=== PATIENT | male | born 1930 | race Caucasian/White ===

== ENCOUNTER 2017-06-07 10:22 | Inpatient (IN) | payer SELFPAY ==
[2017-06-07 11:55] LABS: Bilirubin Negative (Negative); Blood, Urine Large (Negative); Clarity CLOUDY (Clear); Glucose, Urine (Dipstick) Negative (Negative); Leukocyte Negative (Negative); Nitrite Negative (Negative); Protein, Urine (Dipstick) 100 mg/dL (Neg-Trace); Specific Gravity, Urine 1.022 (1.002-1.036); Urobilinogen 0.2 mg/dL (0.2-1.0)
--- NOTE | 2017-06-07 11:55 | RAD ---
CHEST 1 VIEW: Date: 06/07/17 HISTORY: Altered mental status. COMPARISON: None. FINDINGS: Heart size is enlarged. There appear to be multifocal left-sided air space opacities. Mild blunting o f left lateral costophrenic sulcus. No pneumothorax. No acute osseous abnormality. Lungs are hyperinf lated. Dense calcifications of the aorta. IMPRESSION: 1. Cardiomegaly. 2. Multifocal left-sided air space opacities and small effusion concerning for pneumonia. 3. Obstructive pulmonary disease. POS: [facility]
[2017-06-07 11:58] LABS: Bacteria/HPF None Seen HPF (None Seen); Hyaline Casts/LPF 4-6 HYALINE CAST LPF (0-3 Hyaline); Pathc Cast-AUWi Flag 1.21 (0-2.49); RBC/HPF 0-3 HPF (0-3); Squamous Epithelial 0-3 HPF (0-3); WBC/HPF 0-3 HPF (0-3)
[2017-06-07 11:59] LABS: Hemoglobin 12.9 g/dL (14.0-18.0); Mean Corpuscular Volume 96.9 fl (80.0-94.0); Mean Platelet Volume 8.8 fL (7.4-10.4); Platelet Count 194 thou/uL (130-400); RBC Distribution Width 12.7 % (11.5-14.5); Red Blood Cell (RBC) Count 4.03 mill/uL (4.70-6.10); White Blood Cell (WBC) Count 11.8 thou/uL (4.8-10.8)
[2017-06-07 11:59] LABS: Yeast-AUWi Flag 154.7 (0-25.0)
--- NOTE | 2017-06-07 12:01 | RAD ---
PELVIS 1 VIEW: Date: 06/07/17 HISTORY: Fall. COMPARISON: None. FINDINGS: The pubic symphysis is only mildly narrowed. SI joints are intact. No sacral fracture is appreciated. The hip joints are in normal alignment. No femoral neck fracture. IMPRESSION: No acute fracture. POS: [facility]
--- NOTE | 2017-06-07 12:05 | CT ---
CT BRAIN: Date: 06/07/17 HISTORY: Fall. FINDINGS: Noncontrast enhanced CT images of brain obtained. There is age-appropriate cortical atrophy. No evidence of intracranial masses, hemorrhages, strokes, or contusions seen. Ventricles are of normal size. There does appear to be a small amount of gas ante rior to the right maxillary sinus, possibly from facial injury. There does appear to also be some daly e air in the right and left nutrition aides teacher spaces adjacent to the pterygoid muscles. There are also small areas of free air seen in the right and left cavernous sinuses. Dedicated facial CT may be of use. IMPRESSION: Abnormal areas of free air seen in the right and left nutrition aides teacher spaces, as well as the right and lef t cavernous sinuses. POS: [facility]
[2017-06-07 12:10] LABS: Crystals/HPF 1+ AMORPH URATES HPF (Negative); Other Casts/LPF 0-3 COARSE GRAN LPF (0-3 Hyaline); Yeast-All Forms None Seen HPF (None Seen)
[2017-06-07 12:16] LABS: Band 16 % (5-11); MDiff Complete? YES; Monocytes 13 % (0-10); Myelocyte 1 % (0-0); Neutrophil 70 % (42-75); PLT Morphology Comment Appears Adequate; RBC Morphology Normal
[2017-06-07 12:19] LABS: ALT (SGPT) 102 U/L (8-55); AST (SGOT) 287 U/L (5-34); Albumin 3.8 g/dL (3.4-4.8); Alkaline Phosphatase 53 U/L (40-150); Anion Gap 15 mmol/L (10-20); BUN (Urea Nitrogen) 47 mg/dL (8.4-25.7); Bilirubin, Total 1.5 mg/dL (0.2-1.2); Calc. Creatinine Clearance 0 mL/min (70-130); Calcium 9.1 mg/dL (7.8-10.44); Carbon Dioxide 21 mmol/L (23-31); Chloride 112 mmol/L (98-107); Estimated GFR-MDRD 54; Globulin 2.7 g/dL (2.4-3.5); Glucose 88 mg/dL (83-110); Potassium 3.8 mmol/L (3.5-5.1); Protein, Total 6.5 g/dL (5.8-8.1); Sodium 144 mmol/L (136-145)
[2017-06-07 12:30] LABS: Troponin I 6.107 ng/mL (< 0.028)
[2017-06-07 12:33] LABS: CK (CPK) 7407 U/L (30-200)
[2017-06-07] MEDS ORDERED: Azithromycin 500 MG in Sodium Chloride 0.9% 250 ML 250 ML IVPB SCH (13:15)
--- NOTE | 2017-06-07 13:46 | CT ---
CT FACIAL BONES: Date: 06/07/17 HISTORY: Patient with fall. FINDINGS: Axial images are obtained with coronal and sagittal reconstructions. The frontal, ethmoid, maxillary, and sphenoid sinuses are well aerated. As mentioned on the CT of the brain, bilateral cavernous sinu s areas of air are present. There is a small amount of free air anterior to the right maxillary sinus . Small pockets of gas are also seen adjacent to the right pterygoid plate involving the medial and l ateral pterygoid muscles. A tiny amount of gas is also seen in the transverse foramen of C1 on the ri ght, as well as right and left transverse foramen of the C2 vertebra and additional gas is seen along the course of the right vertebral arteries in the transverse foramen bilaterally. There are also sma ll areas of air seen in the left carotid canal seen on image 61 adjacent to the left carotid bulb. No definite evidence of facial fractures seen. There does appear to be a tiny bit of free air also se en anterior to the right frontal sinus. IMPRESSION: 1. Multiple small areas of free air in the soft tissues of the neck and face. There does appear to b e also some free air within the cavernous sinuses bilaterally. 2. No definite evidence of facial fractures seen. POS: [facility]
[2017-06-07] MEDS ORDERED: Bisacodyl 5 MG TAB PO PRN (15:05)
[2017-06-07] MEDS ORDERED: Acetaminophen 325 MG TAB PO PRN (15:05)
[2017-06-07] MEDS ORDERED: Ondansetron ODT 4 MG TAB PO PRN (15:05)
[2017-06-07] MEDS: Sodium Chloride 0.9% 1,000 ML IV SCH (15:29)
[2017-06-07] MEDS ORDERED: Adacel (T-DAP) 0.5 ML VIAL ONE (15:40)
--- NOTE | 2017-06-07 17:24 | HP ---
PRESENTING COMPLAINT: Fall. HISTORY OF PRESENT ILLNESS: An 86-year-old male with no known medical history who presents to the emergency room today after he was found face down at home. He was reported to have fallen around 8:30 on Thursday night, but was not found until Thursday around 9:30 by his daughter when she came to visit. She found him face down and he was rigid. He called EMS who came and assessed him, but the family decided against a hospital visit as he seemed to have no acute problems then. The daughter says, she thinks he attempted to help his to a potty chair (his also is unable to ambulate properly) and then he fell. They also noted foul and dark urine. The patient has been noted to have been falling more frequently for the past several months. He has had about 3-4 falls in the past 2 months. They also noticed that he has had a change in his mental status around this time too. He was taken to the physician and he was seen at [facility], but all the investigations were negative. It was felt to be likely secondary to advancing age, causing dementia. He currently lives at home with his and their son lives next door. At the emergency room, he was found to have a low grade fever. Labs showed slightly elevated troponin and CPK. Chest x-ray showed left pneumonia. He was started on antibiotics and was then admitted for pneumonia, rhabdomyolysis and elevated troponin. PAST MEDICAL HISTORY: Early dementia. FAMILY HISTORY: Reviewed and noncontributory. SOCIAL HISTORY: He does not smoke or drink alcohol. HOME MEDICATIONS: None. ALLERGIES: None. PAST SURGICAL HISTORY: None. REVIEW OF SYSTEMS: Constitutional: Positive for fevers and weakness. HEENT: Eyes: Denies changes in vision Resp: Denies congestion, cough, shortness of breath. Cardiovascular: Denies chest pain, palpitations, PND, orthopnea, irregular heartbeats. Extremities: Edema. Gastrointestinal: Denies nausea, vomiting, constipation, diarrhea. Genitourinary: Negative. Hematology: Negative. Neurology: Negative. Skin: Denies rashes or skin lesions. MSK: denies joint pains, back pain Immunology: Negative PHYSICAL EXAMINATION: Vital signs stable. General: In mild distress. HEENT: Swelling (mild) with bruises on face and right orbital area. Moist membranes. Eyes: EOMI, PERRLA Resp: Clear to auscultation b/l. No wheezes or rales. Cardiovascular: RRR. s1 s2 only. No m/r/g Extremities: No edema. Moving extremities spontaneously. Gastrointestinal: + BS. No organomegaly. Soft, not distended. Neurology: Oriented to person. Lethargic Skin: Warm and dry. Well perfused. LABORATORY DATA: As above. IMAGING: Chest x-ray which revealed cardiomegaly and multifocal left-sided airspace opacities and small effusion concerning for pneumonia, obstructive pulmonary disease. CT head without contrast showed abnormal areas of free air seen in the right and left medical billing service spaces as well as the right and left cavernous cyanosis. Facial bone CT multiple areas of free air in the soft tissues of the neck and face. There does also appear to be some free air within the cavernous sinuses bilaterally. No definite evidence of facial fractures seen. EKG no signs of acute ischemia. ASSESSMENT AND PLAN: 1. Rhabdomyolysis: secondary to prolonged immobility. He has been started on IV hydration. We will trend CPK troponin. Monitor vital signs closely. 2. Left Lobar Pneumonia. He has been started on antibiotics. We will give nebulizer treatments p.r.n. as well. 3. Elevated troponin likely secondary to rhabdomyolysis. We will monitor. Patient is chest pain free. 4. Dementia. Recently diagnosed. Likely responsible for the patient's frequent falls. We will ensure delirium precautions. Obtain B12/folate and TSH. 5. Frequent Falls: As above. PT/OT evaluation. manager social responsibility consult for placement options. CODE STATUS: FULL CODE. MTDD
[2017-06-07] MEDS ORDERED: Acetaminophen 325 MG TAB ONE (17:27)
[2017-06-07 18:57] LABS: Critical Call Chem Troponin I RESULT DECREASING; Troponin I 5.916 ng/mL (< 0.028)
[2017-06-07] MEDS ORDERED: Prevnar 13-Val Conj/PF 0.5 ML SYRINGE IM ONE (21:00)
[2017-06-07] MEDS: Heparin 5,000 UNITS/ML VIAL SC SCH (22:15)
[2017-06-07] MEDS: Docusate 100 MG CAP PO SCH (22:46)
[2017-06-08 01:09] LABS: Critical Call Chem Troponin I RESULT DECREASING; Troponin I 4.507 ng/mL (< 0.028)
[2017-06-08] MEDS: FLU VACC TS2017-18 (>65YR) 0.5 ML SYRINGE IM ONE (03:00)
[2017-06-08 05:06] LABS: Anion Gap 14 mmol/L (10-20); BUN (Urea Nitrogen) 47 mg/dL (8.4-25.7); Calc. Creatinine Clearance 32 mL/min (70-130); Calcium 9.2 mg/dL (7.8-10.44); Carbon Dioxide 22 mmol/L (23-31); Chloride 113 mmol/L (98-107); Estimated GFR-MDRD 54; Glucose 92 mg/dL (83-110); Potassium 3.6 mmol/L (3.5-5.1); Sodium 145 mmol/L (136-145)
[2017-06-08 05:19] LABS: CK (CPK) 4581 U/L (30-200)
[2017-06-08 05:45] LABS: Band 26 % (5-11); Hemoglobin 11.8 g/dL (14.0-18.0); Lymphocytes 7 % (21-51); MDiff Complete? YES; Macrocytosis SLIGHT = 6-15 cells (100X) (0-5/hpf); Mean Corpuscular HGB CONC 32.8 g/dL (32.0-36.0); Mean Corpuscular Hemoglobin 31.8 pg (27.0-31.0); Mean Corpuscular Volume 96.9 fl (80.0-94.0); Mean Platelet Volume 9.2 fL (7.4-10.4); Monocytes 6 % (0-10); Neutrophil 61 % (42-75); PLT Morphology Comment Appears Adequate; Platelet Count 187 thou/uL (130-400); RBC Distribution Width 12.7 % (11.5-14.5); Red Blood Cell (RBC) Count 3.71 mill/uL (4.70-6.10); White Blood Cell (WBC) Count 13.5 thou/uL (4.8-10.8)
[2017-06-08] MEDS: Sodium Chloride 0.9% 1,000 ML IV SCH ×2 (07:55→22:52)
[2017-06-08] MEDS: Heparin 5,000 UNITS/ML VIAL SC SCH ×3 (11:15→22:55)
[2017-06-08] MEDS: Docusate 100 MG CAP PO SCH (11:17)
--- NOTE | 2017-06-08 11:19 | PDOC.PN ---
- Subjective Encounter Start Date: 06/08/17 Encounter Start Time: 11:17 Subjective: More awake today and speaking in complete sentences -: No acute events overnight. - Objective Resuscitation Status: Resuscitation Status DNR:Do Not Resuscitate MAR Reviewed: Yes Vital Signs & Weight: Vital Signs (12 hours) Temp Pulse Resp BP Pulse Ox 06/08/17 03:40 98.9 F 97 20 133/61 97 06/08/17 03:20 98.1 F 103 H 18 115/55 L 96 06/07/17 23:30 99.4 F 102 H 18 120/58 L 96 Weight Weight 119 lb 4.8 oz I&O: 06/07/17 06/08/17 06/09/17 06:59 06:59 06:59 Intake Total 728 Balance 728 Result Diagrams: 06/08/17 04:12 06/08/17 04:13 Phys Exam - Physical Examination Constitutional: NAD HEENT: PERRLA, moist MMs, sclera anicteric Neck: supple, full ROM Respiratory: no wheezing, no rales, no rhonchi, clear to auscultation bilateral Cardiovascular: RRR, no significant murmur, no rub Gastrointestinal: soft, non-tender, no distention, positive bowel sounds Musculoskeletal: no edema, pulses present Neurological: non-focal, moves all 4 limbs Psychiatric: normal affect Deviation from normal: Awake but lethargic. Oriented x 2 Skin: no rash, normal turgor Dx/Plan (1) Rhabdomyolysis Code(s): M62.82 - RHABDOMYOLYSIS Status: Acute Qualifiers: Encounter type: subsequent encounter Plan: Continue mx Comment: 2/2 prolonged immobility following a fall. Continue IVF Monitor K, CPK (2) PNA (pneumonia) Code(s): J18.9 - PNEUMONIA, UNSPECIFIED ORGANISM Status: Acute Qualifiers: Pneumonia type: due to unspecified organism Laterality: left Lung location: lower lobe of lung Qualified Code(s): J18.1 - Lobar pneumonia, unspecified organism Plan: Continue mx Comment: As seen on CXR. On Azithromycin and ceftriaxone (3) Dementia Code(s): F03.90 - UNSPECIFIED DEMENTIA WITHOUT BEHAVIORAL DISTURBANCE Status: Chronic Qualifiers: Dementia type: unspecified type Dementia behavioral disturbance: without behavioral disturbance Qualified Code(s): F03.90 - Unspecified dementia without behavioral disturbance Comment: Continue mx Delirium precautions (4) Fall Code(s): W19.XXXA - UNSPECIFIED FALL, INITIAL ENCOUNTER Status: Acute Qualifiers: Encounter type: subsequent encounter Qualified Code(s): W19.XXXD - Unspecified fall, subsequent encounter Comment: likely 2/2 advancing dementia. W/u for medical etiology negative PT/OT/Speech pathology on board. CT head negative. CT face free air in soft tissues of neck and face as well as free air in Cavernous sinus b/l Discussion held with patient and family, and would not like to proceed with further investigations and management, especially since he is asymptomatic from it (5) Elevated troponin Code(s): R74.8 - ABNORMAL LEVELS OF OTHER SERUM ENZYMES Status: Acute Comment: 2/2 prolonged immobitily. Trending down chest pain free. - Plan cont current plan of care, plan discussed w/ family, continue antibiotics, PT/OT , social sciences chair, speech therapy patient lives with while currently hospitalized here- telephonic case manager consult * .
[2017-06-08] MEDS ORDERED: Docusate Sodium 100 MG/10 ML UDCUP PO SCH (11:30)
[2017-06-08] MEDS ORDERED: cefTRIAXone\\ROCEPHIN 1 GM in Sodium Chloride 0.9% 100 ML IVPB SCH (11:30)
[2017-06-08 11:56] VITALS: BMI 16.2
[2017-06-08] MEDS: Azithromycin 500 MG in Sodium Chloride 0.9% 250 ML 250 ML IVPB SCH (12:21)
[2017-06-08] MEDS: cefTRIAXone\\ROCEPHIN 1 GM, Syringe 0.4 ML in Sterile Water 9.6 ML SLOW IVP SCH (12:21)
[2017-06-08] MEDS: Docusate Sodium 100 MG/10 ML UDCUP PO SCH (22:55)
[2017-06-08] MEDS ORDERED: Lorazepam 2 MG/ML VIAL SLOW IVP SCH (23:45)
[2017-06-09 06:05] LABS: Anion Gap 10 mmol/L (10-20); BUN (Urea Nitrogen) 36 mg/dL (8.4-25.7); CK (CPK) 1673 U/L (30-200); Calc. Creatinine Clearance 47 mL/min (70-130); Calcium 9.4 mg/dL (7.8-10.44); Carbon Dioxide 25 mmol/L (23-31); Chloride 112 mmol/L (98-107); Estimated GFR-MDRD 84; Glucose 97 mg/dL (83-110); Potassium 3.2 mmol/L (3.5-5.1); Sodium 144 mmol/L (136-145)
[2017-06-09 06:07] LABS: Band 16 % (5-11); Hemoglobin 11.7 g/dL (14.0-18.0); Lymphocytes 5 % (21-51); MDiff Complete? YES; Mean Corpuscular HGB CONC 31.9 g/dL (32.0-36.0); Mean Corpuscular Hemoglobin 31.3 pg (27.0-31.0); Mean Corpuscular Volume 98.3 fl (80.0-94.0); Mean Platelet Volume 9.8 fL (7.4-10.4); Monocytes 5 % (0-10); Neutrophil 74 % (42-75); PLT Morphology Comment Appears Adequate; Platelet Count 196 thou/uL (130-400); RBC Distribution Width 12.9 % (11.5-14.5); Red Blood Cell (RBC) Count 3.73 mill/uL (4.70-6.10); White Blood Cell (WBC) Count 14.9 thou/uL (4.8-10.8)
[2017-06-09] MEDS ORDERED: hydrALAZINE 20 MG/ML VIAL SLOW IVP PRN (06:46)
[2017-06-09 07:39] LABS: Magnesium 2.1 mg/dL (1.6-2.6)
[2017-06-09] MEDS: Amlodipine 10 MG TAB PO SCH (09:23)
[2017-06-09] MEDS: Heparin 5,000 UNITS/ML VIAL SC SCH ×3 (09:23→21:16)
[2017-06-09] MEDS: Sodium Chloride 0.9% 1,000 ML IV SCH ×2 (09:37→21:24)
[2017-06-09] MEDS: Docusate Sodium 100 MG/10 ML UDCUP PO SCH ×2 (09:41→21:16)
--- NOTE | 2017-06-09 10:17 | PDOC.PN ---
- Subjective Encounter Start Date: 06/09/17 Encounter Start Time: 10:26 Subjective: PAtient doing better. Tolerating meals today, -: No acute events overight. - Objective Resuscitation Status: Resuscitation Status DNR:Do Not Resuscitate MAR Reviewed: Yes Vital Signs & Weight: Vital Signs (12 hours) Temp Pulse Resp BP BP BP Pulse Ox 06/09/17 09:23 86 146/72 H 06/09/17 09:00 98.1 F 86 20 146/72 H 96 06/09/17 07:18 98 191/83 H 06/09/17 04:00 98.2 F 85 20 191/83 H 92 L Weight Admit Weight 123 lb 12.8 oz Weight 119 lb 4.8 oz I&O: 06/08/17 06/09/17 06/10/17 06:59 06:59 06:59 Intake Total 728 2550 Output Total 3 Balance 728 2547 Result Diagrams: 06/09/17 04:44 06/09/17 04:44 Phys Exam - Physical Examination Constitutional: NAD HEENT: PERRLA, sclera anicteric Neck: supple, full ROM Respiratory: no wheezing, no rales, no rhonchi, clear to auscultation bilateral Cardiovascular: RRR, no significant murmur, no rub Gastrointestinal: soft, non-tender, no distention, positive bowel sounds Musculoskeletal: no edema, pulses present Neurological: non-focal, moves all 4 limbs Dx/Plan (1) Rhabdomyolysis Code(s): M62.82 - RHABDOMYOLYSIS Status: Acute Qualifiers: Encounter type: subsequent encounter Plan: Resolving. WIll D/c IVF and encourage on liberal PO intake. Comment: 2/2 prolonged immobility following a fall. Continue IVF Monitor K, CPK (2) PNA (pneumonia) Code(s): J18.9 - PNEUMONIA, UNSPECIFIED ORGANISM Status: Acute Qualifiers: Pneumonia type: due to unspecified organism Laterality: left Lung location: lower lobe of lung Qualified Code(s): J18.1 - Lobar pneumonia, unspecified organism Comment: p/w leucocytosis and L lung infiltrates. On Azithromycin and ceftriaxone. (3) Leucocytosis Code(s): D72.829 - ELEVATED WHITE BLOOD CELL COUNT, UNSPECIFIED Status: Acute Qualifiers: Leukocytosis type: bandemia Qualified Code(s): D72.825 - Bandemia Comment: Likely from underlying PNA. PErsisting. On Azithromycin and ceftriaxone and otherwise has no other sing of infection. Also cinically looks improved. Will monitor. If worsening, will repeat cultures. (4) Dementia Code(s): F03.90 - UNSPECIFIED DEMENTIA WITHOUT BEHAVIORAL DISTURBANCE Status: Chronic Qualifiers: Dementia type: unspecified type Dementia behavioral disturbance: without behavioral disturbance Qualified Code(s): F03.90 - Unspecified dementia without behavioral disturbance Comment: Continue mx Delirium precautions (5) Fall Code(s): W19.XXXA - UNSPECIFIED FALL, INITIAL ENCOUNTER Status: Acute Qualifiers: Encounter type: subsequent encounter Qualified Code(s): W19.XXXD - Unspecified fall, subsequent encounter Comment: Frequent falls likely 2/2 advancing dementia. W/u for medical etiology negative CT head negative. CT face free air in soft tissues of neck and face as well as free air in Cavernous sinus b/l Discussion held with patient and family, and would not like to proceed with further investigations and management, especially since he is asymptomatic from it. PT/OT/Speech pathology on board. (6) Elevated troponin Code(s): R74.8 - ABNORMAL LEVELS OF OTHER SERUM ENZYMES Status: Acute Plan: Resolving. Comment: 2/2 prolonged immobitily. Trending down chest pain free. (7) HTN (hypertension) Code(s): I10 - ESSENTIAL (PRIMARY) HYPERTENSION Status: Acute Qualifiers: Hypertension type: essential hypertension Qualified Code(s): I10 - Essential (primary) hypertension Comment: Uncontrolled overnight, requiring hydralazine. Started amlodipine. (8) Hypokalemia Code(s): E87.6 - HYPOKALEMIA Status: Acute Comment: Replete. Check serum magnesium. (9) Physical deconditioning Code(s): R53.81 - OTHER MALAISE Status: Chronic Comment: Unable to take care of self at home. PT on board. CM working on placement options. - Plan cont current plan of care, plan discussed w/ family, continue antibiotics, PT/OT , group social worker * .
[2017-06-09 11:22] LABS: Troponin I 1.929 ng/mL (< 0.028)
[2017-06-09] MEDS: Azithromycin 500 MG in Sodium Chloride 0.9% 250 ML 250 ML IVPB SCH (13:05)
[2017-06-09] MEDS: cefTRIAXone\\ROCEPHIN 1 GM, Syringe 0.4 ML in Sterile Water 9.6 ML SLOW IVP SCH (13:06)
[2017-06-10] MEDS: Sodium Chloride 0.9% 1,000 ML IV SCH ×2 (02:57→15:49)
[2017-06-10 06:10] LABS: Anion Gap 9 mmol/L (10-20); BUN (Urea Nitrogen) 29 mg/dL (8.4-25.7); CK (CPK) 406 U/L (30-200); Calc. Creatinine Clearance 52 mL/min (70-130); Carbon Dioxide 25 mmol/L (23-31); Chloride 114 mmol/L (98-107); Estimated GFR-MDRD Greater than 90; Glucose 96 mg/dL (83-110); Potassium 3.3 mmol/L (3.5-5.1); Sodium 145 mmol/L (136-145)
[2017-06-10 06:24] LABS: Band 3 % (5-11); Lymphocytes 6 % (21-51); MDiff Complete? YES; Macrocytosis SLIGHT = 6-15 cells (100X) (0-5/hpf); Mean Corpuscular HGB CONC 32.4 g/dL (32.0-36.0); Mean Corpuscular Hemoglobin 31.6 pg (27.0-31.0); Mean Corpuscular Volume 97.6 fl (80.0-94.0); Mean Platelet Volume 8.7 fL (7.4-10.4); Monocytes 9 % (0-10); Neutrophil 81 % (42-75); PLT Morphology Comment Appears Adequate; Platelet Count 203 thou/uL (130-400); RBC Distribution Width 12.8 % (11.5-14.5); Reactive Lymphocytes 1 % (0-10); Red Blood Cell (RBC) Count 3.49 mill/uL (4.70-6.10); White Blood Cell (WBC) Count 13.5 thou/uL (4.8-10.8)
[2017-06-10] MEDS: Potassium Chloride 20 MEQ TAB PO SCH ×2 (08:59→15:53)
[2017-06-10] MEDS: Heparin 5,000 UNITS/ML VIAL SC SCH ×3 (09:00→20:22)
[2017-06-10] MEDS: Docusate Sodium 100 MG/10 ML UDCUP PO SCH ×2 (09:00→20:20)
[2017-06-10] MEDS: Amlodipine 10 MG TAB PO SCH (09:00)
[2017-06-10] MEDS: cefTRIAXone\\ROCEPHIN 1 GM, Syringe 0.4 ML in Sterile Water 9.6 ML SLOW IVP SCH (11:53)
--- NOTE | 2017-06-10 13:06 | PDOC.PN ---
- Subjective Encounter Start Date: 06/10/17 Encounter Start Time: 13:06 Subjective: No acute events overnight. -: has no complaints. - Objective Resuscitation Status: Resuscitation Status DNR:Do Not Resuscitate MAR Reviewed: Yes Vital Signs & Weight: Vital Signs (12 hours) Temp Pulse Resp BP BP Pulse Ox 06/10/17 11:21 98.2 F 76 20 121/62 96 06/10/17 09:00 87 134/75 06/10/17 08:00 98.1 F 87 20 134/75 95 06/10/17 04:00 98.3 F 75 20 132/67 93 L Weight Admit Weight 123 lb 12.8 oz Weight 119 lb 4.8 oz I&O: 06/09/17 06/10/17 06/11/17 06:59 06:59 06:59 Intake Total 2550 1767 Output Total 3 Balance 2547 1767 Result Diagrams: 06/10/17 05:27 06/10/17 05:27 Phys Exam - Physical Examination Constitutional: NAD HEENT: PERRLA, moist MMs, sclera anicteric Neck: supple, full ROM Respiratory: no wheezing, no rales, no rhonchi, clear to auscultation bilateral Cardiovascular: RRR, no significant murmur, no rub Gastrointestinal: soft, non-tender, no distention, positive bowel sounds Musculoskeletal: no edema, pulses present Neurological: non-focal, moves all 4 limbs Psychiatric: normal affect Deviation from normal: AO x 1 (person) Skin: no rash, normal turgor Dx/Plan (1) Rhabdomyolysis Code(s): M62.82 - RHABDOMYOLYSIS Status: Resolved Qualifiers: Encounter type: subsequent encounter Plan: Resolved. Comment: 2/2 prolonged immobility following a fall. Discontinue IVF (2) PNA (pneumonia) Code(s): J18.9 - PNEUMONIA, UNSPECIFIED ORGANISM Status: Acute Qualifiers: Pneumonia type: due to unspecified organism Laterality: left Lung location: lower lobe of lung Qualified Code(s): J18.1 - Lobar pneumonia, unspecified organism Plan: Improving. Continue Abx. Comment: p/w leucocytosis and L lung infiltrates. On Azithromycin and ceftriaxone. (3) Leucocytosis Code(s): D72.829 - ELEVATED WHITE BLOOD CELL COUNT, UNSPECIFIED Status: Acute Qualifiers: Leukocytosis type: bandemia Qualified Code(s): D72.825 - Bandemia Comment: Improving. (4) Dementia Code(s): F03.90 - UNSPECIFIED DEMENTIA WITHOUT BEHAVIORAL DISTURBANCE Status: Chronic Qualifiers: Dementia type: unspecified type Dementia behavioral disturbance: without behavioral disturbance Qualified Code(s): F03.90 - Unspecified dementia without behavioral disturbance Comment: Continue mx Delirium precautions (5) Fall Code(s): W19.XXXA - UNSPECIFIED FALL, INITIAL ENCOUNTER Status: Acute Qualifiers: Encounter type: subsequent encounter Qualified Code(s): W19.XXXD - Unspecified fall, subsequent encounter Comment: Frequent falls likely 2/2 advancing dementia. W/u for medical etiology negative CT head negative. CT face free air in soft tissues of neck and face as well as free air in Cavernous sinus b/l Discussion held with patient and family, and would not like to proceed with further investigations and management, especially since he is asymptomatic from it. PT/OT/Speech pathology on board. Placement options being discussed. (6) Elevated troponin Code(s): R74.8 - ABNORMAL LEVELS OF OTHER SERUM ENZYMES Status: Resolved Comment: 2/2 prolonged immobitily. Trending down chest pain free. (7) HTN (hypertension) Code(s): I10 - ESSENTIAL (PRIMARY) HYPERTENSION Status: Acute Qualifiers: Hypertension type: essential hypertension Qualified Code(s): I10 - Essential (primary) hypertension Plan: Controlled. Comment: Started amlodipine. Controlled. (8) Hypokalemia Code(s): E87.6 - HYPOKALEMIA Status: Acute Comment: Replete. Check serum magnesium. (9) Physical deconditioning Code(s): R53.81 - OTHER MALAISE Status: Chronic Comment: Unable to take care of self at home. PT on board. CM working on placement options. - Plan cont current plan of care, plan discussed w/ family, continue antibiotics, PT/OT , social media project manager * .
[2017-06-11] MEDS: Sodium Chloride 0.9% 1,000 ML IV SCH (01:33)
[2017-06-11 05:31] LABS: Anion Gap 10 mmol/L (10-20); BUN (Urea Nitrogen) 24 mg/dL (8.4-25.7); Calc. Creatinine Clearance 56 mL/min (70-130); Calcium 9.3 mg/dL (7.8-10.44); Carbon Dioxide 26 mmol/L (23-31); Chloride 114 mmol/L (98-107); Estimated GFR-MDRD Greater than 90; Glucose 120 mg/dL (83-110); Potassium 3.7 mmol/L (3.5-5.1); Sodium 146 mmol/L (136-145)
[2017-06-11 05:34] LABS: Band 2 % (5-11); Hemoglobin 11.5 g/dL (14.0-18.0); Lymphocytes 4 % (21-51); MDiff Complete? YES; Mean Corpuscular HGB CONC 32.5 g/dL (32.0-36.0); Mean Corpuscular Hemoglobin 31.6 pg (27.0-31.0); Mean Corpuscular Volume 97.4 fl (80.0-94.0); Mean Platelet Volume 8.7 fL (7.4-10.4); Monocytes 15 % (0-10); Neutrophil 79 % (42-75); Platelet Count 221 thou/uL (130-400); RBC Distribution Width 13.1 % (11.5-14.5); Red Blood Cell (RBC) Count 3.63 mill/uL (4.70-6.10); White Blood Cell (WBC) Count 12.5 thou/uL (4.8-10.8)
[2017-06-11] MEDS: Docusate Sodium 100 MG/10 ML UDCUP PO SCH ×2 (08:05→20:24)
[2017-06-11] MEDS: Heparin 5,000 UNITS/ML VIAL SC SCH ×3 (08:05→20:24)
[2017-06-11] MEDS: Amlodipine 10 MG TAB PO SCH (08:05)
[2017-06-11] MEDS: cefTRIAXone\\ROCEPHIN 1 GM, Syringe 0.4 ML in Sterile Water 9.6 ML SLOW IVP SCH (12:04)
--- NOTE | 2017-06-11 12:08 | PDOC.PN ---
- Subjective Encounter Start Date: 06/11/17 Encounter Start Time: 12:11 Subjective: More alert today. Has no complaints. -: No acute events overnight. - Objective Resuscitation Status: Resuscitation Status DNR:Do Not Resuscitate MAR Reviewed: Yes Vital Signs & Weight: Vital Signs (12 hours) Temp Pulse Pulse Pulse Resp BP BP 06/11/17 09:20 81 81 162/72 H 160/77 H 06/11/17 08:05 81 06/11/17 08:00 98.2 F 81 18 06/11/17 04:00 98.0 F 81 18 BP Pulse Ox 06/11/17 09:20 06/11/17 08:05 06/11/17 08:00 167/71 H 97 06/11/17 04:00 158/76 H 95 Weight Admit Weight 123 lb 12.8 oz Weight 119 lb 4.8 oz I&O: 06/10/17 06/11/17 06/12/17 06:59 06:59 06:59 Intake Total 1767 1700 240 Balance 1767 1700 240 Result Diagrams: 06/11/17 04:41 06/11/17 04:41 Phys Exam - Physical Examination Constitutional: NAD HEENT: PERRLA, moist MMs, sclera anicteric Neck: supple, full ROM Respiratory: no wheezing, no rales, no rhonchi, clear to auscultation bilateral Cardiovascular: RRR, no significant murmur, no rub Gastrointestinal: soft, non-tender, no distention, positive bowel sounds Musculoskeletal: no edema, pulses present Neurological: non-focal, normal sensation Psychiatric: normal affect, A&O x 3 Deviation from normal: Oriented x 3 today. Skin: no rash, normal turgor Dx/Plan (1) PNA (pneumonia) Code(s): J18.9 - PNEUMONIA, UNSPECIFIED ORGANISM Status: Acute Qualifiers: Pneumonia type: due to unspecified organism Laterality: left Lung location: lower lobe of lung Qualified Code(s): J18.1 - Lobar pneumonia, unspecified organism Plan: Improving. Continue antibiotics. Comment: p/w leucocytosis and L lung infiltrates. Will switch to PO levofloxacin. (2) Rhabdomyolysis Code(s): M62.82 - RHABDOMYOLYSIS Status: Resolved Qualifiers: Encounter type: subsequent encounter Comment: 2/2 prolonged immobility following a fall. Discontinue IVF (3) Dementia Code(s): F03.90 - UNSPECIFIED DEMENTIA WITHOUT BEHAVIORAL DISTURBANCE Status: Chronic Qualifiers: Dementia type: unspecified type Dementia behavioral disturbance: without behavioral disturbance Qualified Code(s): F03.90 - Unspecified dementia without behavioral disturbance Comment: Continue mx Delirium precautions (4) Fall Code(s): W19.XXXA - UNSPECIFIED FALL, INITIAL ENCOUNTER Status: Acute Qualifiers: Encounter type: subsequent encounter Qualified Code(s): W19.XXXD - Unspecified fall, subsequent encounter Comment: Frequent falls likely 2/2 advancing dementia. W/u for medical etiology negative CT head negative. CT face free air in soft tissues of neck and face as well as free air in Cavernous sinus b/l Discussion held with patient and family, and would not like to proceed with further investigations and management, especially since he is asymptomatic from it. PT/OT/Speech pathology on board. Placement options being discussed. (5) HTN (hypertension) Code(s): I10 - ESSENTIAL (PRIMARY) HYPERTENSION Status: Acute Qualifiers: Hypertension type: essential hypertension Qualified Code(s): I10 - Essential (primary) hypertension Comment: Fair control. Continue amlodipine. Stop IVF. (6) Hypokalemia Code(s): E87.6 - HYPOKALEMIA Status: Resolved Comment: Replete as necessary. (7) Physical deconditioning Code(s): R53.81 - OTHER MALAISE Status: Chronic Comment: Unable to take care of self at home. PT on board. CM working on placement options. (8) Elevated troponin Code(s): R74.8 - ABNORMAL LEVELS OF OTHER SERUM ENZYMES Status: Resolved Comment: 2/2 prolonged immobitily. Trending down chest pain free. - Plan cont current plan of care, continue antibiotics, PT/OT d/c IVF * .
[2017-06-11] MEDS ORDERED: Lorazepam 2 MG/ML VIAL SLOW IVP PRN (22:23)
[2017-06-12 05:34] LABS: Anion Gap 12 mmol/L (10-20); BUN (Urea Nitrogen) 17 mg/dL (8.4-25.7); Calc. Creatinine Clearance 59 mL/min (70-130); Calcium 9.4 mg/dL (7.8-10.44); Carbon Dioxide 25 mmol/L (23-31); Chloride 108 mmol/L (98-107); Estimated GFR-MDRD Greater than 90; Glucose 90 mg/dL (83-110); Potassium 3.7 mmol/L (3.5-5.1); Sodium 141 mmol/L (136-145)
[2017-06-12 06:15] LABS: Band 6 % (5-11); Eosinophils 1 % (0-10); Hemoglobin 12.5 g/dL (14.0-18.0); Lymphocytes 2 % (21-51); MDiff Complete? YES; Mean Corpuscular HGB CONC 31.8 g/dL (32.0-36.0); Mean Corpuscular Hemoglobin 30.9 pg (27.0-31.0); Mean Corpuscular Volume 97.2 fl (80.0-94.0); Mean Platelet Volume 8.5 fL (7.4-10.4); Monocytes 27 % (0-10); Neutrophil 64 % (42-75); Platelet Count 249 thou/uL (130-400); RBC Distribution Width 13.2 % (11.5-14.5); Red Blood Cell (RBC) Count 4.05 mill/uL (4.70-6.10); White Blood Cell (WBC) Count 13.9 thou/uL (4.8-10.8)
[2017-06-12] MEDS: Docusate Sodium 100 MG/10 ML UDCUP PO SCH ×2 (07:48→20:25)
[2017-06-12] MEDS: Heparin 5,000 UNITS/ML VIAL SC SCH ×3 (07:48→20:25)
[2017-06-12] MEDS: Amlodipine 10 MG TAB PO SCH (07:48)
--- NOTE | 2017-06-12 14:18 | PDOC.PN ---
- Subjective Encounter Start Date: 06/12/17 Encounter Start Time: 09:00 Subjective: lethargic but awakens easily and follows verbal stimuli - Objective Resuscitation Status: Resuscitation Status DNR:Do Not Resuscitate MAR Reviewed: Yes Vital Signs & Weight: Vital Signs (12 hours) Temp Pulse Resp BP Pulse Ox 06/12/17 08:00 98.2 F 85 18 95 06/12/17 07:48 85 06/12/17 07:11 99.5 F 85 18 129/79 93 L 06/12/17 04:00 98.3 F 99 20 155/88 H 88 L Weight Admit Weight 123 lb 12.8 oz Weight 119 lb 4.8 oz I&O: 06/11/17 06/12/17 06/13/17 06:59 06:59 06:59 Intake Total 1700 1320 480 Balance 1700 1320 480 Result Diagrams: 06/12/17 04:47 06/12/17 04:47 Phys Exam - Physical Examination HEENT: PERRLA dry mucosa Neck: no JVD, supple Respiratory: no wheezing, no rales Cardiovascular: RRR, no significant murmur Gastrointestinal: soft, non-tender, positive bowel sounds Musculoskeletal: no edema, pulses present Neurological: non-focal, moves all 4 limbs -: multiple lacerations and abrasions all over body due to falls Dx/Plan (1) NSTEMI (non-ST elevated myocardial infarction) Code(s): I21.4 - NON-ST ELEVATION (NSTEMI) MYOCARDIAL INFARCTION Status: Acute Comment: resolving (2) Fall Code(s): W19.XXXA - UNSPECIFIED FALL, INITIAL ENCOUNTER Status: Acute Qualifiers: Encounter type: subsequent encounter Qualified Code(s): W19.XXXD - Unspecified fall, subsequent encounter Comment: Frequent falls likely 2/2 advancing dementia. W/u for medical etiology negative CT head negative. CT face free air in soft tissues of neck and face as well as free air in Cavernous sinus b/l Discussion held with patient and family, and would not like to proceed with further investigations and management, especially since he is asymptomatic from it. PT/OT/Speech pathology on board. (3) HTN (hypertension) Code(s): I10 - ESSENTIAL (PRIMARY) HYPERTENSION Status: Acute Qualifiers: Hypertension type: essential hypertension Qualified Code(s): I10 - Essential (primary) hypertension (4) PNA (pneumonia) Code(s): J18.9 - PNEUMONIA, UNSPECIFIED ORGANISM Status: Acute Qualifiers: Pneumonia type: due to unspecified organism Laterality: left Lung location: lower lobe of lung Qualified Code(s): J18.1 - Lobar pneumonia, unspecified organism Comment: p/w leucocytosis and L lung infiltrat, levofloxacin. (5) Dementia Code(s): F03.90 - UNSPECIFIED DEMENTIA WITHOUT BEHAVIORAL DISTURBANCE Status: Chronic Qualifiers: Dementia type: unspecified type Dementia behavioral disturbance: without behavioral disturbance Qualified Code(s): F03.90 - Unspecified dementia without behavioral disturbance Comment: Continue mx Delirium precautions (6) Physical deconditioning Code(s): R53.81 - OTHER MALAISE Status: Chronic (7) Rhabdomyolysis Code(s): M62.82 - RHABDOMYOLYSIS Status: Resolved Qualifiers: Encounter type: subsequent encounter - Plan encourage po intake -: d/w son at bedside -: plan is for home with hospice -: levaquin, will add asp and beta gaurav for now -: no perfecto/arb due to rhabdo, poor oral intake and risk of renal failure * . Review of Systems - Medications/Allergies Allergies/Adverse Reactions: Allergies Allergy/AdvReac Type Severity Reaction Status Date / Time No Known Drug Allergies Allergy Verified 06/08/17 04:34 Medications: Current Medications Acetaminophen (Tylenol) 650 mg PO Q4H PRN PRN Reason: Headache/Fever or Pain Last Admin: 06/07/17 17:28 Dose: 650 mg Amlodipine Besylate (Norvasc) 10 mg PO DAILY [facility] Last Admin: 06/12/17 07:48 Dose: 10 mg Bisacodyl (Dulcolax) 10 mg PO DAILYPRN PRN PRN Reason: Constipation Docusate Sodium (Colace Liquid) 100 mg PO BID [facility] Last Admin: 06/12/17 07:48 Dose: 100 mg Heparin Sodium (Porcine) (Heparin) 5,000 units SC TID [facility] Last Admin: 06/12/17 07:48 Dose: 5,000 units Hydralazine HCl (Apresoline) 10 mg SLOW IVP Q6H PRN PRN Reason: FOR SBP>160 Last Admin: 06/09/17 07:18 Dose: 10 mg Levofloxacin (Levaquin) 500 mg PO 0600 [facility] Last Admin: 06/12/17 06:25 Dose: 500 mg Lorazepam (Ativan) 0.5 mg SLOW IVP HSPRN PRN PRN Reason: ANXIETY/AGITATION Last Admin: 06/12/17 02:15 Dose: 0.5 mg Ondansetron HCl (Zofran Odt) 4 mg PO Q6H PRN PRN Reason: Nausea/Vomiting Quetiapine Fumarate (Seroquel) 12.5 mg PO HSPRN PRN PRN Reason: Insomnia Last Admin: 06/11/17 22:29 Dose: 12.5 mg Sodium Chloride (Flush - Normal Saline) 10 ml IVF Q12HR [facility] Last Admin: 06/12/17 07:49 Dose: Not Given Sodium Chloride (Flush - Normal Saline) 10 ml IVF PRN PRN PRN Reason: Saline Flush
[2017-06-12] MEDS: Carvedilol 3.125 MG TAB PO SCH (16:55)
[2017-06-13 05:51] LABS: Anion Gap 12 mmol/L (10-20); BUN (Urea Nitrogen) 21 mg/dL (8.4-25.7); Calc. Creatinine Clearance 58 mL/min (70-130); Calcium 8.8 mg/dL (7.8-10.44); Carbon Dioxide 24 mmol/L (23-31); Chloride 108 mmol/L (98-107); Estimated GFR-MDRD Greater than 90; Glucose 86 mg/dL (83-110); Potassium 3.7 mmol/L (3.5-5.1); Sodium 140 mmol/L (136-145)
[2017-06-13 06:19] LABS: Band 2 % (5-11); Hemoglobin 11.3 g/dL (14.0-18.0); Lymphocytes 4 % (21-51); MDiff Complete? YES; Mean Corpuscular HGB CONC 32.7 g/dL (32.0-36.0); Mean Corpuscular Hemoglobin 31.7 pg (27.0-31.0); Mean Corpuscular Volume 97.1 fl (80.0-94.0); Mean Platelet Volume 8.7 fL (7.4-10.4); Monocytes 23 % (0-10); Neutrophil 71 % (42-75); Platelet Count 268 thou/uL (130-400); Red Blood Cell (RBC) Count 3.57 mill/uL (4.70-6.10); White Blood Cell (WBC) Count 11.8 thou/uL (4.8-10.8)
[2017-06-13] MEDS: Amlodipine 10 MG TAB PO SCH (10:10)
[2017-06-13] MEDS: Docusate Sodium 100 MG/10 ML UDCUP PO SCH ×2 (10:11→20:27)
[2017-06-13] MEDS: Carvedilol 3.125 MG TAB PO SCH ×2 (10:11→18:19)
[2017-06-13] MEDS: Heparin 5,000 UNITS/ML VIAL SC SCH ×3 (10:12→20:27)
--- NOTE | 2017-06-13 13:01 | PDOC.PN ---
- Subjective Encounter Start Date: 06/13/17 Encounter Start Time: 08:45 Subjective: more awake this am, no sob -: still weak - Objective Resuscitation Status: Resuscitation Status DNR:Do Not Resuscitate MAR Reviewed: Yes Vital Signs & Weight: Vital Signs (12 hours) Temp Pulse Resp BP BP Pulse Ox 06/13/17 10:10 67 144/66 H 06/13/17 07:37 98.0 F 67 18 144/66 H 92 L 06/13/17 04:00 97.6 F 87 16 147/74 H 95 Weight Admit Weight 123 lb 12.8 oz Weight 119 lb 4.8 oz I&O: 06/12/17 06/13/17 06/14/17 06:59 06:59 06:59 Intake Total 1320 1395 Balance 1320 1395 Result Diagrams: 06/13/17 04:02 06/13/17 04:02 Phys Exam - Physical Examination HEENT: PERRLA, moist MMs Neck: no JVD, supple Respiratory: no wheezing, no rales rhonchi++ Cardiovascular: RRR, no significant murmur Gastrointestinal: soft, non-tender, positive bowel sounds Musculoskeletal: no edema, pulses present Neurological: non-focal, moves all 4 limbs Dx/Plan (1) NSTEMI (non-ST elevated myocardial infarction) Code(s): I21.4 - NON-ST ELEVATION (NSTEMI) MYOCARDIAL INFARCTION Status: Acute Comment: resolving (2) Fall Code(s): W19.XXXA - UNSPECIFIED FALL, INITIAL ENCOUNTER Status: Acute Qualifiers: Encounter type: subsequent encounter Qualified Code(s): W19.XXXD - Unspecified fall, subsequent encounter Comment: Frequent falls likely 2/2 advancing dementia. W/u for medical etiology negative CT head negative. CT face free air in soft tissues of neck and face as well as free air in Cavernous sinus b/l Discussion held with patient and family, and would not like to proceed with further investigations and management, especially since he is asymptomatic from it. PT/OT/Speech pathology on board. (3) HTN (hypertension) Code(s): I10 - ESSENTIAL (PRIMARY) HYPERTENSION Status: Acute Qualifiers: Hypertension type: essential hypertension Qualified Code(s): I10 - Essential (primary) hypertension (4) PNA (pneumonia) Code(s): J18.9 - PNEUMONIA, UNSPECIFIED ORGANISM Status: Acute Qualifiers: Pneumonia type: due to unspecified organism Laterality: left Lung location: lower lobe of lung Qualified Code(s): J18.1 - Lobar pneumonia, unspecified organism Comment: p/w leucocytosis and L lung infiltrat, levofloxacin. (5) Dementia Code(s): F03.90 - UNSPECIFIED DEMENTIA WITHOUT BEHAVIORAL DISTURBANCE Status: Chronic Qualifiers: Dementia type: unspecified type Dementia behavioral disturbance: without behavioral disturbance Qualified Code(s): F03.90 - Unspecified dementia without behavioral disturbance Comment: Continue mx Delirium precautions (6) Physical deconditioning Code(s): R53.81 - OTHER MALAISE Status: Chronic (7) Rhabdomyolysis Code(s): M62.82 - RHABDOMYOLYSIS Status: Resolved Qualifiers: Encounter type: subsequent encounter - Plan encourage po intake -: still deconditioned, ambulated with max assist -: on asp, norvasc and coreg, oral levaquin -: dc plan in 24-36hrs when he can amb a bit so daugher can take care of him -: hospice has been arranged at his daughter's house. * . Review of Systems - Medications/Allergies Allergies/Adverse Reactions: Allergies Allergy/AdvReac Type Severity Reaction Status Date / Time No Known Drug Allergies Allergy Verified 06/08/17 04:34 Medications: Current Medications Acetaminophen (Tylenol) 650 mg PO Q4H PRN PRN Reason: Headache/Fever or Pain Last Admin: 06/07/17 17:28 Dose: 650 mg Amlodipine Besylate (Norvasc) 10 mg PO DAILY [facility] Last Admin: 06/13/17 10:10 Dose: 10 mg Aspirin (Aspirin Chewable) 81 mg PO DAILY [facility] Last Admin: 06/13/17 10:11 Dose: 81 mg Bisacodyl (Dulcolax) 10 mg PO DAILYPRN PRN PRN Reason: Constipation Carvedilol (Coreg) 3.125 mg PO BID-[facility] Last Admin: 06/13/17 10:11 Dose: 3.125 mg Docusate Sodium (Colace Liquid) 100 mg PO BID [facility] Last Admin: 06/13/17 10:11 Dose: 100 mg Heparin Sodium (Porcine) (Heparin) 5,000 units SC TID [facility] Last Admin: 06/13/17 10:12 Dose: 5,000 units Hydralazine HCl (Apresoline) 10 mg SLOW IVP Q6H PRN PRN Reason: FOR SBP>160 Last Admin: 06/09/17 07:18 Dose: 10 mg Levofloxacin (Levaquin) 500 mg PO 0600 [facility] Last Admin: 06/13/17 05:32 Dose: 500 mg Lorazepam (Ativan) 0.5 mg SLOW IVP HSPRN PRN PRN Reason: ANXIETY/AGITATION Last Admin: 06/12/17 02:15 Dose: 0.5 mg Ondansetron HCl (Zofran Odt) 4 mg PO Q6H PRN PRN Reason: Nausea/Vomiting Quetiapine Fumarate (Seroquel) 12.5 mg PO HSPRN PRN PRN Reason: Insomnia Last Admin: 06/11/17 22:29 Dose: 12.5 mg Sodium Chloride (Flush - Normal Saline) 10 ml IVF Q12HR [facility] Last Admin: 06/13/17 10:12 Dose: 10 ml Sodium Chloride (Flush - Normal Saline) 10 ml IVF PRN PRN PRN Reason: Saline Flush
[2017-06-14 06:17] LABS: Anion Gap 11 mmol/L (10-20); BUN (Urea Nitrogen) 22 mg/dL (8.4-25.7); Calc. Creatinine Clearance 59 mL/min (70-130); Calcium 8.6 mg/dL (7.8-10.44); Carbon Dioxide 23 mmol/L (23-31); Chloride 108 mmol/L (98-107); Estimated GFR-MDRD Greater than 90; Glucose 89 mg/dL (83-110); Potassium 3.8 mmol/L (3.5-5.1); Sodium 138 mmol/L (136-145)
[2017-06-14 06:51] LABS: Band 5 % (5-11); Eosinophils 1 % (0-10); Hemoglobin 11.2 g/dL (14.0-18.0); Lymphocytes 9 % (21-51); MDiff Complete? YES; Mean Corpuscular HGB CONC 32.9 g/dL (32.0-36.0); Mean Corpuscular Hemoglobin 31.9 pg (27.0-31.0); Mean Corpuscular Volume 96.8 fl (80.0-94.0); Mean Platelet Volume 8.5 fL (7.4-10.4); Monocytes 16 % (0-10); Neutrophil 69 % (42-75); Platelet Count 308 thou/uL (130-400); RBC Distribution Width 12.9 % (11.5-14.5); Red Blood Cell (RBC) Count 3.51 mill/uL (4.70-6.10); White Blood Cell (WBC) Count 11.8 thou/uL (4.8-10.8)
[2017-06-14] MEDS: Docusate Sodium 100 MG/10 ML UDCUP PO SCH (08:25)
[2017-06-14] MEDS: Amlodipine 10 MG TAB PO SCH (08:25)
[2017-06-14] MEDS: Heparin 5,000 UNITS/ML VIAL SC SCH ×3 (08:25→20:55)
[2017-06-14] MEDS: Carvedilol 3.125 MG TAB PO SCH ×2 (08:25→16:16)
[2017-06-14] MEDS: FLU VACC TS2017-18 (>65YR) 0.5 ML SYRINGE IM ONE (14:18)
[2017-06-14] MEDS: Senokot S 8.6-50 MG TAB PO SCH (20:54)
--- NOTE | 2017-06-14 21:04 | PDOC.PN ---
- Subjective Encounter Start Date: 06/14/17 Encounter Start Time: 15:00 Patient seen and examined. No new complaints. No overnight events - Objective Resuscitation Status: Resuscitation Status DNR:Do Not Resuscitate MAR Reviewed: Yes Vital Signs & Weight: Vital Signs (12 hours) Temp Pulse Resp BP BP Pulse Ox 06/14/17 20:00 98.0 F 73 20 103/59 L 94 L 06/14/17 16:36 98.2 F 68 18 103/61 92 L 06/14/17 11:52 98.0 F 73 18 110/65 95 Weight Admit Weight 123 lb 12.8 oz Weight 132 lb 6.4 oz I&O: 06/13/17 06/14/17 06/15/17 06:59 06:59 06:59 Intake Total 1129 662 0133 Balance 5408 086 6889 Result Diagrams: 06/14/17 05:28 06/14/17 05:28 Phys Exam - Physical Examination Constitutional: NAD Respiratory: no wheezing, no rhonchi Cardiovascular: RRR, no rub Gastrointestinal: soft, non-tender, positive bowel sounds Dx/Plan - Plan DVT proph w/heparin, DVT proph w/SCDs IMPRESSION: 1. Rhabdomyolysis due to fall - CK improving 2. Elevated troponins due to demand ischemia 3. Suspected facial fractures - family declined further w/u 4. CAP - suspected Pneumococcus 5. Dementia 6. Abn LFTs on admission / Hypokalemia/Moderate Protein Calorie malnutrition PLAN: * Cont to monitor * Change Amlodipine to 5 mg BID * Cont Atbx * DC in AM with hospice if stable. Review of Systems - Review of Systems Respiratory: negative: Cough, Dry, Shortness of Breath, Hemoptysis, SOB with Excertion, Pleuritic Pain, Sputum, Wheezing Cardiovascular: negative: chest pain, palpitations, orthopnea, paroxysmal nocturnal dyspnea, edema, light headedness Gastrointestinal: negative: Nausea, Vomiting, Abdominal Pain, Diarrhea, Constipation, Melena, Hematochezia - Medications/Allergies Allergies/Adverse Reactions: Allergies Allergy/AdvReac Type Severity Reaction Status Date / Time No Known Drug Allergies Allergy Verified 06/08/17 04:34 Medications: Current Medications Acetaminophen (Tylenol) 650 mg PO Q4H PRN PRN Reason: Headache/Fever or Pain Last Admin: 06/07/17 17:28 Dose: 650 mg Amlodipine Besylate (Norvasc) 5 mg PO BID [facility] Aspirin (Aspirin Chewable) 81 mg PO DAILY [facility] Last Admin: 06/14/17 08:25 Dose: 81 mg Bisacodyl (Dulcolax) 10 mg PO DAILYPRN PRN PRN Reason: Constipation Carvedilol (Coreg) 3.125 mg PO BID-[facility] Last Admin: 06/14/17 16:16 Dose: 3.125 mg Heparin Sodium (Porcine) (Heparin) 5,000 units SC TID [facility] Last Admin: 06/14/17 20:55 Dose: 5,000 units Hydralazine HCl (Apresoline) 10 mg SLOW IVP Q6H PRN PRN Reason: FOR SBP>160 Last Admin: 06/09/17 07:18 Dose: 10 mg Levofloxacin (Levaquin) 500 mg PO 0600 [facility] Last Admin: 06/14/17 05:39 Dose: 500 mg Lorazepam (Ativan) 0.5 mg SLOW IVP HSPRN PRN PRN Reason: ANXIETY/AGITATION Last Admin: 06/12/17 02:15 Dose: 0.5 mg Ondansetron HCl (Zofran Odt) 4 mg PO Q6H PRN PRN Reason: Nausea/Vomiting Quetiapine Fumarate (Seroquel) 12.5 mg PO HSPRN PRN PRN Reason: Insomnia Last Admin: 06/11/17 22:29 Dose: 12.5 mg Saccharomyces Boulardii (Florastor) 250 mg PO DAILY [facility] Senna/Docusate Sodium (Senokot S) 1 tab PO BID [facility] Last Admin: 06/14/17 20:54 Dose: Not Given Sodium Chloride (Flush - Normal Saline) 10 ml IVF Q12HR [facility] Last Admin: 06/14/17 20:55 Dose: 10 ml Sodium Chloride (Flush - Normal Saline) 10 ml IVF PRN PRN PRN Reason: Saline Flush
[2017-06-15] MEDS: Senokot S 8.6-50 MG TAB PO SCH (08:25)
[2017-06-15] MEDS: Heparin 5,000 UNITS/ML VIAL SC SCH ×2 (08:25→14:19)
[2017-06-15] MEDS: Carvedilol 3.125 MG TAB PO SCH ×2 (08:25→17:13)
[2017-06-15] MEDS ORDERED: Amlodipine 5 MG TAB PO SCH (09:00)
[2017-06-15] MEDS ORDERED: Saccharomyces boulardii 250 MG CAP PO SCH (09:00)
[2017-06-15 11:51] VITALS: TEMP 97.5
[2017-06-15 16:25] VITALS: BP 101/56
--- NOTE | 2017-06-15 19:15 | DIS ---
DATE OF DISCHARGE: 06/15/2017 DISCHARGE DISPOSITION: Home with [facility]. The patient was seen on the day of discharge. Denies any new complaints. DISCHARGE MEDICATIONS: Amlodipine 5 mg daily, aspirin 81 mg daily, carvedilol 3.125 mg twice a day, Tylenol as needed, Levaquin 500 mg daily for the next 3 days. INPATIENT CONSULTANTS: None. FOLLOWUP: Patient will follow up with [facility] as a new primary care provider. BRIEF HOSPITAL COURSE: Patient is an 86-year-old male with no known past medical history presented t o the hospital with fall. Please refer to the history and physical dated 06/07/2017 for further deta ils. The patient was admitted to the hospital with a diagnosis of fall with rhabdomyolysis due to prolonge d immobility. He was placed on IV fluids with good improvement in his CK level. He was also found t o have elevated troponins, probably secondary to prolonged immobility with demand ischemia. His work up was also consistent with sepsis secondary to pneumonia. Overall, he has shown good improvement so far. He will be discharged home with hospice as a [place] case. FINAL DIAGNOSES: 1. Rhabdomyolysis secondary to fall with prolonged immobility. CK on admission was 7407 that count includes the [facility] ed to 406. 2. Sepsis with acute organ dysfunction secondary to pneumonia, was suspected pneumococcus. 3. Elevated troponins due to demand ischemia. Family declined further workup. 4. Suspected facial fractures. Family declined further workup. 5. Dementia. 6. Abnormal liver function tests on admission, improved. 7. Hypokalemia. 8. Moderate protein-calorie malnutrition. 9. Dementia. 10. History of frequent falls. Plan of care was discussed with the patient and the family in detail. They stated understanding. Total time coordinating the discharge of this patient was 35 minutes.
--- NOTE | 2017-06-19 13:14 | PQF ---
BRETT GUEVARA MALIK MD [id number] CLINICAL DOCUMENTATION CLARIFICATION FORM: POST DISCHARGE Addendum to original discharge summary date: ____ Late entry note date: __ BRETT GUEVARA [id number] CHRISTIANA HACKETT PLEASE DOCUMENT YOUR RESPONSE BELOW PLEASE FAX RESPONSE BACK TO [phone] YOUR INPUT IS NEEDED TO CORRECTLY CODE A DIAGNOSIS FOR YOUR PATIENT. DATE: 06/19/2017 ATTN: DR. AUSTIN Please exercise your independent, professional judgment in responding to the clarification form. Clinical indicators are provided on the bottom of this form for your review Please check appropriate box(s) to clarify if the following diagnosis has been ruled in our ruled out: SEPSIS (CDI/Coding list diagnosis here) [ x] Ruled in diagnosis [x ] Continue to treat [ ] Resolved [ ] Ruled out diagnosis [ ] Cannot rule out diagnosis [ ] Other diagnosis [ ] Unable to determine In addition, please specify: Present on Admission (POA): [x] Yes [ ] No [ ] Unable to determine For continuity of documentation, please document condition throughout progress notes and discharge summary. Thank You. CLINICAL INDICATORS - SIGNS / SYMPTOMS / LABS: VITALS: BP:129/98, PULSE: 85, RESP: 20, TEMP: 100.0 H&P: RHABDOMYOLYSIS 06/09 PN: LEUCOCYTOSIS - BANDEMIA "LIKELY FROM UNDERLYING PNA" DS: SEPSIS WITH ACUTE ORGAN DYSFUNTION SECONDARY TO PNEUMONIA "WORKUP WAS ALSO CONSISTENT WITH SEPSIS SECONDARY TO PNEUMONIA" RISK FACTORS: RHABDOMYOLYSIS MALNUTRITION PNEUMONIA TREATMENT: ANTIBIOTICS (This form is maintained as a part of the permanent medical record) 2015 [employer]. All Rights Reserved Sherron Armenta CCS, [facility] [email or web address] [phone] MTDD
== END 2017-06-15 17:29 | disposition hospice, home (50) | DRG 871 ==
LOC: ERS 10:22 → ERHOLD 12:46 → 2NO 18:02 → T4-B 06-08 16:20
PROVIDERS: ADMIT Internal Medicine; ATTEND Internal Medicine
DX: A40.3 Sepsis due to Streptococcus pneumoniae (principal); R65.20 Severe sepsis without septic shock; E44.0 Moderate protein-calorie malnutrition; J13 Pneumonia due to Streptococcus pneumoniae; M62.82 Rhabdomyolysis; I24.8 Other forms of acute ischemic heart disease; F03.90 Unspecified dementia, unspecified severity, without behavioral disturbance, psychotic disturbance, mood disturbance, and anxiety; Z23 Encounter for immunization; E87.6 Hypokalemia; Z51.5 Encounter for palliative care; Z66 Do not resuscitate; R29.6 Repeated falls
CPT/HCPCS: 36415; 70450; 70486; 71045; 72170; 80048; 80053; 81003; 81015; 82550; 82553; 82607; 82746; 83735; 84484; 85025; 87040; 90471; 90670; 90682; 90715; 93005; 93010; 94760; 96361; 96365; 96375; A4216; G0008; G0009; G8978-GP-CM; G8979-GP-CK; G8987-GO-CM; G8988-GO-CI; G8996-GN-CK; G8997-GN-CI; J0360; J0456; J0696; J1644; J2060; J7050; Q2036